=== PATIENT | male | born 1960 | race Native Hawaiian/Other Pacific Islander ===

== ENCOUNTER 2018-10-19 15:56 | Outpatient (CLI) | payer OTHER ==
[2018-10-19] MEDS ORDERED: LEVE500T5 PO (16:33)
[2018-10-19] MEDS ORDERED: DIVA500T2 PO (16:34)
== END 2018-10-19 16:04 | disposition short-term general hospital (02) ==
LOC: AMB 15:56
DX: R06.02 Shortness of breath (principal); R07.89 Other chest pain
CPT/HCPCS: A0425; A0427

== ENCOUNTER 2018-12-13 08:05 | Emergency (ER) | payer OTHER ==
[~2018-12-13] VITALS: Ht 185.4 cm; Wt 104.8 kg
[2018-12-13 08:05] VITALS: TEMP 97.7
[~2018-12-13 08:05] MED LIST: DIVA500T2 PO; LEVE500T5 PO
[2018-12-13 10:00] VITALS: BP 130/77
== END 2018-12-13 10:15 ==
LOC: ED 08:11
DX: S02.2XXA Fracture of nasal bones, initial encounter for closed fracture (principal); S01.21XA Laceration without foreign body of nose, initial encounter; Y09 Assault by unspecified means; Y92.149 Unspecified place in prison as the place of occurrence of the external cause
CPT/HCPCS: 99283